=== PATIENT | female | born 1940 | race African-American/Black ===

== ENCOUNTER 2016-08-25 18:49 | Inpatient (IN) | payer OTHER ==
--- NOTE | 2016-08-25 19:22 | HP ---
[facility] Rehab Assess/Revision - Admission History Ad[facility] Date of Admission to Rehab: 08/25/16 - Findings Detox History & Physical reviewed: Yes Concur with findings: Yes Comments/Additional Findings: TRASNFERRED FROM DETOX TO REHAB ADMISSION PER PROTOCOL
[2016-08-25] MEDS ORDERED: NICOTINE POLACRILEX 2 MG GUM BUC PRN (19:24)
[2016-08-25] MEDS ORDERED: MENTHOL/PHENOL 1 EACH UD MM PRN (19:24)
[2016-08-25] MEDS ORDERED: MAGNESIUM CITRATE 300 ML BOTTLE PO PRN (19:24)
[2016-08-25] MEDS ORDERED: NICOTINE 14 MG/24 HOURS TOPICAL PATCH TD PRN (19:24)
[2016-08-25] MEDS ORDERED: LOPERAMIDE HCL 2 MG CAPSULE PO PRN (19:24)
[2016-08-25] MEDS: THIAMINE HCL 100 MG TABLET (FP) PO SCH (21:41)
[2016-08-25] MEDS: RANITIDINE HCL 150 MG TABLET (FP) PO SCH (21:41)
[2016-08-26] MEDS: MIRTAZAPINE 15 MG TABLET (FP) PO SCH ×2 (00:36→21:34)
[2016-08-26] MEDS ORDERED: METHADONE PO SCH ×4 (06:00→11:12)
[2016-08-26] MEDS: PRENATAL VITAMINS W/ FOLIC ACID TABLET (FP) PO SCH (09:22)
[2016-08-26] MEDS: RANITIDINE HCL 150 MG TABLET (FP) PO SCH ×2 (09:22→21:34)
[2016-08-26] MEDS ORDERED: METHADONE HCL 40 MG DISPERSABLE TABLET PO SCH (09:45)
[2016-08-26] MEDS ORDERED: METHADONE PO ONE (11:00)
[2016-08-26] MEDS ORDERED: METHADONE HCL 40 MG DISPERSABLE TABLET ONE (11:35)
[2016-08-26] MEDS ORDERED: METHADONE HCL 5 MG TABLET ONE (11:36)
[2016-08-26] MEDS ORDERED: METHADONE HCL 10 MG TABLET (FOR DETOX USE ONLY) ONE (11:36)
[2016-08-26] MEDS: hydrOXYzine PAMOATE 50 MG CAPSULE (FP) PO PRN ×2 (14:44→21:37)
[2016-08-26] MEDS: IBUPROFEN 400 MG TABLET (FP) PO PRN ×2 (14:45→21:34)
[2016-08-26] MEDS: THIAMINE HCL 100 MG TABLET (FP) PO SCH (21:34)
[2016-08-26] MEDS: MAG HYDROX/AL HYDROX/SIMETH 30 ML UNIT-DOSE CUP PO PRN (21:38)
[2016-08-27] MEDS ORDERED: METHADONE HCL 5 MG TABLET ONE (03:31)
[2016-08-27] MEDS ORDERED: METHADONE HCL 10 MG TABLET ONE (03:31)
[2016-08-27] MEDS ORDERED: METHADONE HCL 40 MG DISPERSABLE TABLET ONE (03:31)
[2016-08-27] MEDS: METHADONE 40 MG, METHADONE 30 MG, METHADONE 5 MG PO SCH (06:38)
[2016-08-27] MEDS: RANITIDINE HCL 150 MG TABLET (FP) PO SCH ×2 (09:16→21:32)
[2016-08-27] MEDS: PRENATAL VITAMINS W/ FOLIC ACID TABLET (FP) PO SCH (09:16)
[2016-08-27] MEDS: ACETAMINOPHEN 325 MG TABLET (FP) PO PRN (19:42)
[2016-08-27] MEDS: MAG HYDROX/AL HYDROX/SIMETH 30 ML UNIT-DOSE CUP PO PRN (19:43)
[2016-08-27] MEDS: MAGNESIUM HYDROX 2400MG/30ML ORAL SUSPENSION 30 ML CUP PO PRN (19:43)
[2016-08-27] MEDS: MIRTAZAPINE 15 MG TABLET (FP) PO SCH (21:32)
[2016-08-27] MEDS: THIAMINE HCL 100 MG TABLET (FP) PO SCH (21:32)
[2016-08-28] MEDS ORDERED: METHADONE HCL 5 MG TABLET ONE (03:09)
[2016-08-28] MEDS ORDERED: METHADONE HCL 40 MG DISPERSABLE TABLET ONE (03:10)
[2016-08-28] MEDS ORDERED: METHADONE HCL 10 MG TABLET ONE (03:10)
[2016-08-28] MEDS: METHADONE 40 MG, METHADONE 30 MG, METHADONE 5 MG PO SCH (06:19)
[2016-08-28] MEDS: PRENATAL VITAMINS W/ FOLIC ACID TABLET (FP) PO SCH (10:25)
[2016-08-28] MEDS: RANITIDINE HCL 150 MG TABLET (FP) PO SCH ×2 (10:26→22:05)
[2016-08-28] MEDS: IBUPROFEN 400 MG TABLET (FP) PO PRN (10:28)
--- NOTE | 2016-08-28 12:17 | HP ---
Psychiatrist Admission - Data Date of interview: 08/28/16 Admission source: [facility] Identifying data: This is the first admission to [address] [place] [address] for this 76 years old AA single female mother of 2(both her kids from sickness).Patient resides alone supported by [facility]. Medical History: Significant for BA,GERD,HTN. Psychiatric History: Patient reports anxiety,depression and mood instability,no psychiatric follow up .She reports obtaining Remeron 15 mg po hs from her PCP.Denies any psychiatric admissions,suicidal attempts. Physical/Sexual Abuse/Trauma History: denies Vital Signs: Vital Signs - 24 hr 08/28/16 08/28/16 08/28/16 00:30 06:36 10:31 Temperature 97.8 F Pulse Rate 80 81 Respiratory 16 18 Rate Blood Pressure 155/80 150/70 Allergies/Adverse Reactions: Allergies Allergy/AdvReac Type Severity Reaction Status Date / Time No Known Allergies Allergy Verified 08/21/16 17:02 Date of last physical exam: 08/21/16 Concur with the findings of this exam: Yes - Substance Abuse/Tx History Hx Alcohol Use: Yes (socially on and off) Hx Substance Use: Yes (reports crack /cocaine and heroin (IV)since 25 yo(MMTP 75 mg)) Substance Use Type: Alcohol, Cocaine, Opiates Hx Substance Use Treatment: Yes (longest abstinence a few months-1 year.completed a few programs in the past) - Admission Criteria Previous failed treatment: Yes Poor recovery environment: Yes Comorbidities: Yes Lacks judgement: Yes Mental Status Exam - Mental Status Exam Alert and Oriented to: Time, Place, Person Cognitive Function: Grossly Intact Patient Appearance: Unkempt Mood: Sad, Anxious Affect: Labile Patient Behavior: Cooperative Speech Pattern: Clear Voice Loudness: Normal Thought Process: Goal Oriented Thought Disorder: Not Present Hallucinations: Denies Suicidal Ideation: Denies Homicidal Ideation: Denies Insight/Judgement: Fair Sleep: Difficulty falling asleep Appetite: Fair Muscle strength/Tone: Normal Gait/Station: Normal Psychiatric Findings - Problem List ([place] 1, 2,3) (1) Cocaine dependence, uncomplicated Current Visit: Yes Status: Chronic (2) Nicotine dependence Current Visit: Yes Status: Chronic (3) Opioid dependence on agonist therapy Current Visit: Yes Status: Chronic (4) Sedative, hypnotic or anxiolytic dependence with withdrawal, uncomplicated Current Visit: Yes Status: Chronic (5) Substance induced mood disorder Current Visit: Yes Status: Chronic (6) Asthma Current Visit: Yes Status: Chronic Qualifiers: (7) GERD (gastroesophageal reflux disease) Current Visit: Yes Status: Chronic Qualifiers: (8) Hypertension Current Visit: Yes Status: Chronic Qualifiers: - Initial Treatment Plan Initial Treatment Plan: Continue Remeron 15 mg po hs. Will monitor progress.
[2016-08-28] MEDS ORDERED: MAGNESIUM CITRATE 300 ML BOTTLE PO PRN (12:41)
[2016-08-28] MEDS: ACETAMINOPHEN 325 MG TABLET (FP) PO PRN (13:41)
[2016-08-28] MEDS: DOCUSATE SODIUM 100 MG CAPSULE (FP) PO SCH ×2 (13:41→22:05)
[2016-08-28] MEDS: hydrOXYzine PAMOATE 50 MG CAPSULE (FP) PO PRN (15:47)
[2016-08-28] MEDS: THIAMINE HCL 100 MG TABLET (FP) PO SCH (22:05)
[2016-08-28] MEDS: MIRTAZAPINE 15 MG TABLET (FP) PO SCH (22:05)
[2016-08-28] MEDS: IBUPROFEN 600 MG TABLET (FP) PO PRN (22:07)
[2016-08-29] MEDS ORDERED: METHADONE HCL 40 MG DISPERSABLE TABLET ONE (06:01)
[2016-08-29] MEDS ORDERED: METHADONE HCL 5 MG TABLET ONE (06:01)
[2016-08-29] MEDS ORDERED: METHADONE HCL 10 MG TABLET ONE (06:01)
[2016-08-29] MEDS: METHADONE 40 MG, METHADONE 30 MG, METHADONE 5 MG PO SCH (06:50)
[2016-08-29] MEDS: PRENATAL VITAMINS W/ FOLIC ACID TABLET (FP) PO SCH (10:30)
[2016-08-29] MEDS: RANITIDINE HCL 150 MG TABLET (FP) PO SCH ×2 (10:30→22:00)
[2016-08-29] MEDS: DOCUSATE SODIUM 100 MG CAPSULE (FP) PO SCH ×2 (10:30→22:00)
[2016-08-29] MEDS: MAG HYDROX/AL HYDROX/SIMETH 30 ML UNIT-DOSE CUP PO PRN (14:41)
[2016-08-29] MEDS: hydrOXYzine PAMOATE 50 MG CAPSULE (FP) PO PRN (14:41)
[2016-08-29] MEDS: IBUPROFEN 600 MG TABLET (FP) PO PRN (18:07)
[2016-08-29] MEDS: THIAMINE HCL 100 MG TABLET (FP) PO SCH (22:00)
[2016-08-29] MEDS: MIRTAZAPINE 15 MG TABLET (FP) PO SCH (22:00)
[2016-08-30] MEDS ORDERED: METHADONE HCL 40 MG DISPERSABLE TABLET ONE (03:20)
[2016-08-30] MEDS ORDERED: METHADONE HCL 5 MG TABLET ONE (03:20)
[2016-08-30] MEDS ORDERED: METHADONE HCL 10 MG TABLET ONE (03:20)
[2016-08-30] MEDS: METHADONE 40 MG, METHADONE 30 MG, METHADONE 5 MG PO SCH (06:35)
[2016-08-30] MEDS: PRENATAL VITAMINS W/ FOLIC ACID TABLET (FP) PO SCH (11:01)
[2016-08-30] MEDS: DOCUSATE SODIUM 100 MG CAPSULE (FP) PO SCH ×2 (11:01→21:50)
[2016-08-30] MEDS: RANITIDINE HCL 150 MG TABLET (FP) PO SCH ×2 (11:01→21:50)
[2016-08-30] MEDS: hydrOXYzine PAMOATE 50 MG CAPSULE (FP) PO PRN (11:04)
[2016-08-30] MEDS: ALBUTEROL SO4 6.7 GM HFA INHALER IH PRN (15:03)
[2016-08-30] MEDS: THIAMINE HCL 100 MG TABLET (FP) PO SCH (21:50)
[2016-08-30] MEDS: MIRTAZAPINE 15 MG TABLET (FP) PO SCH (21:51)
[2016-08-31] MEDS ORDERED: METHADONE HCL 5 MG TABLET ONE (03:25)
[2016-08-31] MEDS ORDERED: METHADONE HCL 10 MG TABLET ONE (03:26)
[2016-08-31] MEDS ORDERED: METHADONE HCL 40 MG DISPERSABLE TABLET ONE (03:26)
[2016-08-31] MEDS: METHADONE 40 MG, METHADONE 30 MG, METHADONE 5 MG PO SCH (06:22)
[2016-08-31] MEDS: RANITIDINE HCL 150 MG TABLET (FP) PO SCH ×2 (10:40→21:46)
[2016-08-31] MEDS: PRENATAL VITAMINS W/ FOLIC ACID TABLET (FP) PO SCH (10:40)
[2016-08-31] MEDS: DOCUSATE SODIUM 100 MG CAPSULE (FP) PO SCH ×2 (10:41→21:46)
[2016-08-31] MEDS: hydrOXYzine PAMOATE 50 MG CAPSULE (FP) PO PRN ×2 (10:43→21:47)
[2016-08-31] MEDS: THIAMINE HCL 100 MG TABLET (FP) PO SCH (21:46)
[2016-08-31] MEDS: MIRTAZAPINE 15 MG TABLET (FP) PO SCH (21:46)
[2016-09-01] MEDS ORDERED: METHADONE HCL 5 MG TABLET ONE (03:25)
[2016-09-01] MEDS ORDERED: METHADONE HCL 10 MG TABLET ONE (03:26)
[2016-09-01] MEDS ORDERED: METHADONE HCL 40 MG DISPERSABLE TABLET ONE (03:26)
[2016-09-01] MEDS: METHADONE 40 MG, METHADONE 30 MG, METHADONE 5 MG PO SCH (06:23)
[2016-09-01] MEDS: PRENATAL VITAMINS W/ FOLIC ACID TABLET (FP) PO SCH (10:18)
[2016-09-01] MEDS: RANITIDINE HCL 150 MG TABLET (FP) PO SCH ×2 (10:18→21:42)
[2016-09-01] MEDS: DOCUSATE SODIUM 100 MG CAPSULE (FP) PO SCH ×2 (10:18→21:42)
[2016-09-01] MEDS: hydrOXYzine PAMOATE 50 MG CAPSULE (FP) PO PRN ×2 (10:19→18:01)
[2016-09-01] MEDS: HYDROCHLOROTHIAZIDE 25 MG TABLET (FP) PO SCH (14:36)
[2016-09-01] MEDS: MIRTAZAPINE 15 MG TABLET (FP) PO SCH (21:42)
[2016-09-01] MEDS: THIAMINE HCL 100 MG TABLET (FP) PO SCH (21:43)
[2016-09-01] MEDS: IBUPROFEN 600 MG TABLET (FP) PO PRN (21:44)
[2016-09-02] MEDS ORDERED: METHADONE HCL 5 MG TABLET ONE (06:06)
[2016-09-02] MEDS ORDERED: METHADONE HCL 10 MG TABLET ONE (06:07)
[2016-09-02] MEDS ORDERED: METHADONE HCL 40 MG DISPERSABLE TABLET ONE (06:07)
[2016-09-02] MEDS: METHADONE 40 MG, METHADONE 30 MG, METHADONE 5 MG PO SCH (06:42)
[2016-09-02] MEDS: PRENATAL VITAMINS W/ FOLIC ACID TABLET (FP) PO SCH (09:06)
[2016-09-02] MEDS: RANITIDINE HCL 150 MG TABLET (FP) PO SCH ×2 (09:06→21:16)
[2016-09-02] MEDS: HYDROCHLOROTHIAZIDE 25 MG TABLET (FP) PO SCH (09:06)
[2016-09-02] MEDS: DOCUSATE SODIUM 100 MG CAPSULE (FP) PO SCH ×2 (09:06→21:16)
[2016-09-02] MEDS: hydrOXYzine PAMOATE 50 MG CAPSULE (FP) PO PRN ×3 (09:06→18:35)
[2016-09-02] MEDS: MIRTAZAPINE 15 MG TABLET (FP) PO SCH (21:16)
[2016-09-02] MEDS: THIAMINE HCL 100 MG TABLET (FP) PO SCH (21:16)
[2016-09-03] MEDS ORDERED: METHADONE HCL 40 MG DISPERSABLE TABLET ONE (05:54)
[2016-09-03] MEDS ORDERED: METHADONE HCL 5 MG TABLET ONE (05:54)
[2016-09-03] MEDS ORDERED: METHADONE HCL 10 MG TABLET ONE (05:54)
[2016-09-03] MEDS: METHADONE 40 MG, METHADONE 30 MG, METHADONE 5 MG PO SCH (05:56)
[2016-09-03] MEDS: hydrOXYzine PAMOATE 50 MG CAPSULE (FP) PO PRN ×3 (06:00→17:11)
[2016-09-03] MEDS: HYDROCHLOROTHIAZIDE 25 MG TABLET (FP) PO SCH (09:19)
[2016-09-03] MEDS: RANITIDINE HCL 150 MG TABLET (FP) PO SCH ×2 (09:19→21:21)
[2016-09-03] MEDS: DOCUSATE SODIUM 100 MG CAPSULE (FP) PO SCH ×2 (09:19→21:21)
[2016-09-03] MEDS: PRENATAL VITAMINS W/ FOLIC ACID TABLET (FP) PO SCH (09:19)
[2016-09-03] MEDS: IBUPROFEN 600 MG TABLET (FP) PO PRN (17:11)
[2016-09-03] MEDS: THIAMINE HCL 100 MG TABLET (FP) PO SCH (21:21)
[2016-09-03] MEDS: MIRTAZAPINE 15 MG TABLET (FP) PO SCH (21:21)
[2016-09-04] MEDS ORDERED: METHADONE HCL 5 MG TABLET ONE (03:10)
[2016-09-04] MEDS ORDERED: METHADONE HCL 40 MG DISPERSABLE TABLET ONE (03:10)
[2016-09-04] MEDS ORDERED: METHADONE HCL 10 MG TABLET ONE (03:10)
[2016-09-04] MEDS: hydrOXYzine PAMOATE 50 MG CAPSULE (FP) PO PRN ×3 (03:19→17:14)
[2016-09-04] MEDS: METHADONE 40 MG, METHADONE 30 MG, METHADONE 5 MG PO SCH (06:05)
[2016-09-04] MEDS: IBUPROFEN 600 MG TABLET (FP) PO PRN (09:02)
[2016-09-04] MEDS: HYDROCHLOROTHIAZIDE 25 MG TABLET (FP) PO SCH (09:04)
[2016-09-04] MEDS: PRENATAL VITAMINS W/ FOLIC ACID TABLET (FP) PO SCH (09:05)
[2016-09-04] MEDS: DOCUSATE SODIUM 100 MG CAPSULE (FP) PO SCH ×2 (09:05→21:42)
[2016-09-04] MEDS: MAG HYDROX/AL HYDROX/SIMETH 30 ML UNIT-DOSE CUP PO PRN (09:06)
[2016-09-04] MEDS: RANITIDINE HCL 150 MG TABLET (FP) PO SCH ×2 (09:52→21:42)
--- NOTE | 2016-09-04 10:49 | PN ---
[facility] Progress Note Note: C/O stuffy nose NS nose spray
[2016-09-04] MEDS: SODIUM CHLORIDE NASAL SPRAY 44 ML BOTTLE NS SCH (11:44)
[2016-09-04] MEDS: THIAMINE HCL 100 MG TABLET (FP) PO SCH (21:42)
[2016-09-04] MEDS: MIRTAZAPINE 15 MG TABLET (FP) PO SCH (21:42)
[2016-09-05] MEDS: SODIUM CHLORIDE NASAL SPRAY 44 ML BOTTLE NS SCH ×3 (00:13→21:38)
[2016-09-05] MEDS ORDERED: METHADONE HCL 10 MG TABLET ONE (03:14)
[2016-09-05] MEDS ORDERED: METHADONE HCL 40 MG DISPERSABLE TABLET ONE (03:14)
[2016-09-05] MEDS ORDERED: METHADONE HCL 5 MG TABLET ONE (03:14)
[2016-09-05] MEDS: METHADONE 40 MG, METHADONE 30 MG, METHADONE 5 MG PO SCH (06:08)
[2016-09-05] MEDS: hydrOXYzine PAMOATE 50 MG CAPSULE (FP) PO PRN ×3 (07:10→18:14)
[2016-09-05] MEDS: IBUPROFEN 600 MG TABLET (FP) PO PRN (08:29)
[2016-09-05] MEDS: HYDROCHLOROTHIAZIDE 25 MG TABLET (FP) PO SCH (10:55)
[2016-09-05] MEDS: PRENATAL VITAMINS W/ FOLIC ACID TABLET (FP) PO SCH (10:55)
[2016-09-05] MEDS: RANITIDINE HCL 150 MG TABLET (FP) PO SCH ×2 (10:55→21:38)
[2016-09-05] MEDS: DOCUSATE SODIUM 100 MG CAPSULE (FP) PO SCH ×2 (10:55→21:38)
--- NOTE | 2016-09-05 11:08 | PN ---
Psychiatric Progress Note Vital Signs: Vital Signs Period Temp Pulse Resp BP Sys/Sue Pulse Ox Last 24 Hr 98.1 F-98.1 F 76-90 16-18 153-166/76-84 Date of Session: 09/05/16 Chief Complaint:: "anxiety" HPI: Patient is addressing cocaine, nicotine, sedative hypnotic dependence comorbid substane induced mood disorder. ROS: BA,GERD,HTN medically managed. Current Medications: Active Medications Generic Name Dose Route Start Last Admin Trade Name Freq PRN Reason Stop Dose Admin Acetaminophen 650 mg 08/25/16 19:24 08/28/16 13:41 Tylenol - PO 650 mg Q4H PRN Administration FEVER OR PAIN Al Hydroxide/Mg Hydroxide 30 ml 08/25/16 19:24 09/04/16 09:06 Mylanta Oral Suspension - PO 30 ml Q6H PRN Administration DYSPEPSIA Albuterol Sulfate 2 puff 08/30/16 14:41 08/30/16 15:03 Ventolin Hfa Inhaler - IH 2 applic Q4H PRN Administration SHORT OF BREATH/WHEEZING Diltiazem HCl 180 mg 08/26/16 10:00 09/05/16 10:55 Cardizem Cd - PO 180 mg DAILY CHANDRA Administration Diphenhydramine HCl 50 mg 08/25/16 19:24 Benadryl - PO HSMR1 PRN FOR ITCHING Docusate Sodium 100 mg 08/28/16 13:00 09/05/16 10:55 Colace - PO 100 mg BID CHANDRA Administration Eucalyptus/Menthol/Phenol/Sorbitol 1 each 08/25/16 19:24 Cepastat Lozenge - MM Q4H PRN SORE THROAT Guaifenesin 10 ml 08/25/16 19:24 Robitussin Dm - PO Q6H PRN COUGH Hydrochlorothiazide 25 mg 09/01/16 14:30 09/05/16 10:55 Hctz - PO 25 mg DAILY CHANDRA Administration Hydroxyzine Pamoate 50 mg 08/25/16 19:24 09/05/16 07:10 Vistaril - PO 50 mg Q4H PRN Administration AGITATION Ibuprofen 600 mg 08/28/16 12:42 09/05/16 08:29 Motrin - PO 600 mg Q6H PRN Administration PAIN Loperamide HCl 4 mg 08/25/16 19:24 Imodium - PO Q6H PRN DIARRHEA Magnesium Hydroxide 30 ml 08/25/16 19:24 08/27/16 19:43 Milk Of Magnesia - PO 30 ml DAILY PRN Administration CONSTIPATION Methadone HCl 40 mg/ Methadone 75 mg 09/03/16 06:00 09/05/16 06:08 HCl 30 mg/ Methadone HCl 5 mg PO 75 mg DAILY@0600 CHANDRA Administration Mirtazapine 15 mg 08/25/16 23:45 09/04/16 21:42 Remeron - PO 15 mg HS CHANDRA Administration Nicotine 14 mg 08/25/16 19:24 Nicoderm Patch - TD DAILY PRN WITHDRAWAL(CONT SUBST) Nicotine Polacrilex 2 mg 08/25/16 19:24 Nicorette Gum - BUC Q2H PRN NICOTINE REPLACEMENT RX Multivit/Folic Acid/Iron 1 tab 08/26/16 10:00 09/05/16 10:55 Vitamins (Sjr) - PO 1 tab DAILY CHANDRA Administration Pseudoephedrine/Triprolidine 1 combo 08/25/16 19:24 Actifed - PO TID PRN NASAL CONGESTION Ranitidine HCl 150 mg 08/25/16 22:00 09/05/16 10:55 Zantac - PO 150 mg BID CHANDRA Administration Sodium Chloride 2 spray 09/04/16 11:00 09/05/16 10:56 [place] Nasal [place] - NS 2 spray BID CHANDRA Administration Thiamine HCl 100 mg 08/25/16 22:00 09/04/16 21:42 Vitamin B1 - PO 100 mg HS CHANDRA Administration Current Side Effect: No Lab tests ordered: No Lab tests reviewed: Yes Provider note:: Reviewed the chart, met with the patient, patient reports she has a difficulty to adjust the unit due to her anxiety, states was taking non prescribed klonopin, feels that Vistaril not effective, reviewed her current medications, discussed indications, properties medications(Remeron and Buspar) with the patient, recommended to start Buspar 5 mg po tid and will adjust the dosage if needed, psychoeducation provided, MSE completed. Total face to face time:: 30 Mental Status Exam - Mental Status Exam Alert and Oriented to: Time, Place, Person Cognitive Function: Good Patient Appearance: Well Groomed Mood: Sad, Anxious Affect: Appropriate, Mood Congruent Patient Behavior: Appropriate, Cooperative Speech Pattern: Clear, Appropriate Voice Loudness: Normal Thought Process: Intact, Goal Oriented Thought Disorder: Not Present Hallucinations: Denies Suicidal Ideation: Denies Homicidal Ideation: Denies Insight/Judgement: Fair Sleep: Difficulty falling asleep Appetite: Fair Gait/Station: Other (ambultes with walker) Psychiatric Treatment Plan - Problem List (1) Asthma Current Visit: Yes Qualifiers: (2) Cocaine dependence, uncomplicated Current Visit: Yes (3) GERD (gastroesophageal reflux disease) Current Visit: Yes Qualifiers: (4) Hypertension Current Visit: Yes Qualifiers: (5) Nicotine dependence Current Visit: Yes (6) Opioid dependence on agonist therapy Current Visit: Yes (7) Sedative, hypnotic or anxiolytic dependence with withdrawal, uncomplicated Current Visit: Yes (8) Substance induced mood disorder Current Visit: Yes
[2016-09-05] MEDS: busPIRone HCL 5 MG TABLET PO SCH ×2 (13:08→21:39)
[2016-09-05] MEDS: MIRTAZAPINE 15 MG TABLET (FP) PO SCH (21:38)
[2016-09-05] MEDS: THIAMINE HCL 100 MG TABLET (FP) PO SCH (21:39)
[2016-09-06] MEDS ORDERED: METHADONE HCL 10 MG TABLET ONE (03:30)
[2016-09-06] MEDS ORDERED: METHADONE HCL 40 MG DISPERSABLE TABLET ONE (03:31)
[2016-09-06] MEDS ORDERED: METHADONE HCL 5 MG TABLET ONE (03:31)
[2016-09-06] MEDS: METHADONE 40 MG, METHADONE 30 MG, METHADONE 5 MG PO SCH (06:20)
[2016-09-06] MEDS: busPIRone HCL 5 MG TABLET PO SCH ×3 (06:20→21:07)
[2016-09-06] MEDS: DOCUSATE SODIUM 100 MG CAPSULE (FP) PO SCH ×2 (10:25→21:07)
[2016-09-06] MEDS: HYDROCHLOROTHIAZIDE 25 MG TABLET (FP) PO SCH (10:25)
[2016-09-06] MEDS: RANITIDINE HCL 150 MG TABLET (FP) PO SCH ×2 (10:26→21:07)
[2016-09-06] MEDS: hydrOXYzine PAMOATE 50 MG CAPSULE (FP) PO PRN ×2 (10:26→16:37)
[2016-09-06] MEDS: PRENATAL VITAMINS W/ FOLIC ACID TABLET (FP) PO SCH (10:26)
[2016-09-06] MEDS: SODIUM CHLORIDE NASAL SPRAY 44 ML BOTTLE NS SCH ×2 (10:26→21:09)
[2016-09-06] MEDS: THIAMINE HCL 100 MG TABLET (FP) PO SCH (21:07)
[2016-09-06] MEDS: MIRTAZAPINE 15 MG TABLET (FP) PO SCH (21:09)
[2016-09-07] MEDS ORDERED: METHADONE HCL 5 MG TABLET ONE (03:16)
[2016-09-07] MEDS ORDERED: METHADONE HCL 40 MG DISPERSABLE TABLET ONE (03:17)
[2016-09-07] MEDS ORDERED: METHADONE HCL 10 MG TABLET ONE (03:17)
[2016-09-07] MEDS: busPIRone HCL 5 MG TABLET PO SCH ×3 (06:23→21:17)
[2016-09-07] MEDS: METHADONE 40 MG, METHADONE 30 MG, METHADONE 5 MG PO SCH (06:23)
[2016-09-07] MEDS: DOCUSATE SODIUM 100 MG CAPSULE (FP) PO SCH ×2 (10:06→21:18)
[2016-09-07] MEDS: PRENATAL VITAMINS W/ FOLIC ACID TABLET (FP) PO SCH (10:06)
[2016-09-07] MEDS: RANITIDINE HCL 150 MG TABLET (FP) PO SCH ×2 (10:06→21:18)
[2016-09-07] MEDS: SODIUM CHLORIDE NASAL SPRAY 44 ML BOTTLE NS SCH ×2 (10:06→21:18)
[2016-09-07] MEDS: HYDROCHLOROTHIAZIDE 25 MG TABLET (FP) PO SCH (10:06)
[2016-09-07] MEDS: hydrOXYzine PAMOATE 50 MG CAPSULE (FP) PO PRN ×2 (10:07→21:18)
[2016-09-07] MEDS: THIAMINE HCL 100 MG TABLET (FP) PO SCH (21:17)
[2016-09-07] MEDS: MIRTAZAPINE 15 MG TABLET (FP) PO SCH (21:18)
[2016-09-08] MEDS ORDERED: METHADONE HCL 5 MG TABLET ONE (05:56)
[2016-09-08] MEDS ORDERED: METHADONE HCL 40 MG DISPERSABLE TABLET ONE (05:56)
[2016-09-08] MEDS ORDERED: METHADONE HCL 10 MG TABLET ONE (05:56)
[2016-09-08] MEDS: METHADONE 40 MG, METHADONE 30 MG, METHADONE 5 MG PO SCH (06:28)
[2016-09-08] MEDS: busPIRone HCL 5 MG TABLET PO SCH ×3 (06:28→21:20)
[2016-09-08] MEDS: SODIUM CHLORIDE NASAL SPRAY 44 ML BOTTLE NS SCH ×2 (10:47→21:21)
[2016-09-08] MEDS: HYDROCHLOROTHIAZIDE 25 MG TABLET (FP) PO SCH (10:48)
[2016-09-08] MEDS: RANITIDINE HCL 150 MG TABLET (FP) PO SCH ×2 (10:48→21:20)
[2016-09-08] MEDS: DOCUSATE SODIUM 100 MG CAPSULE (FP) PO SCH ×2 (10:48→21:20)
[2016-09-08] MEDS: PRENATAL VITAMINS W/ FOLIC ACID TABLET (FP) PO SCH (10:48)
[2016-09-08] MEDS: IBUPROFEN 600 MG TABLET (FP) PO PRN ×2 (10:50→18:22)
[2016-09-08] MEDS: P-EPHED 60MG/TRIPROLIDI 2.5MG TABLET PO PRN (13:46)
[2016-09-08] MEDS: hydrOXYzine PAMOATE 50 MG CAPSULE (FP) PO PRN (18:21)
[2016-09-08] MEDS: THIAMINE HCL 100 MG TABLET (FP) PO SCH (21:20)
[2016-09-08] MEDS: MIRTAZAPINE 15 MG TABLET (FP) PO SCH (21:20)
[2016-09-09] MEDS ORDERED: METHADONE HCL 40 MG DISPERSABLE TABLET ONE (03:14)
[2016-09-09] MEDS ORDERED: METHADONE HCL 10 MG TABLET ONE (03:14)
[2016-09-09] MEDS ORDERED: METHADONE HCL 5 MG TABLET ONE (03:14)
[2016-09-09] MEDS: METHADONE 40 MG, METHADONE 30 MG, METHADONE 5 MG PO SCH (06:12)
[2016-09-09] MEDS: busPIRone HCL 5 MG TABLET PO SCH ×3 (06:13→21:39)
[2016-09-09] MEDS: SODIUM CHLORIDE NASAL SPRAY 44 ML BOTTLE NS SCH ×2 (10:00→21:39)
[2016-09-09] MEDS: RANITIDINE HCL 150 MG TABLET (FP) PO SCH ×2 (10:01→21:39)
[2016-09-09] MEDS: HYDROCHLOROTHIAZIDE 25 MG TABLET (FP) PO SCH (10:01)
[2016-09-09] MEDS: DOCUSATE SODIUM 100 MG CAPSULE (FP) PO SCH ×2 (10:01→21:39)
[2016-09-09] MEDS: PRENATAL VITAMINS W/ FOLIC ACID TABLET (FP) PO SCH (10:01)
[2016-09-09] MEDS: hydrOXYzine PAMOATE 50 MG CAPSULE (FP) PO PRN (10:02)
[2016-09-09] MEDS: MAGNESIUM HYDROX 2400MG/30ML ORAL SUSPENSION 30 ML CUP PO PRN (18:34)
[2016-09-09] MEDS: MIRTAZAPINE 15 MG TABLET (FP) PO SCH (21:39)
[2016-09-09] MEDS: THIAMINE HCL 100 MG TABLET (FP) PO SCH (21:39)
[2016-09-10] MEDS ORDERED: METHADONE HCL 5 MG TABLET ONE (03:19)
[2016-09-10] MEDS ORDERED: METHADONE HCL 10 MG TABLET ONE (03:19)
[2016-09-10] MEDS ORDERED: METHADONE HCL 40 MG DISPERSABLE TABLET ONE (03:19)
[2016-09-10] MEDS: busPIRone HCL 5 MG TABLET PO SCH ×3 (06:36→21:35)
[2016-09-10] MEDS: METHADONE 40 MG, METHADONE 30 MG, METHADONE 5 MG PO SCH (06:36)
[2016-09-10] MEDS ORDERED: MAGNESIUM CITRATE 300 ML BOTTLE PO PRN (07:00)
[2016-09-10] MEDS: DOCUSATE SODIUM 100 MG CAPSULE (FP) PO SCH ×2 (10:24→21:34)
[2016-09-10] MEDS: HYDROCHLOROTHIAZIDE 25 MG TABLET (FP) PO SCH (10:25)
[2016-09-10] MEDS: SODIUM CHLORIDE NASAL SPRAY 44 ML BOTTLE NS SCH ×2 (10:25→21:34)
[2016-09-10] MEDS: PRENATAL VITAMINS W/ FOLIC ACID TABLET (FP) PO SCH (10:25)
[2016-09-10] MEDS: hydrOXYzine PAMOATE 50 MG CAPSULE (FP) PO PRN (10:26)
[2016-09-10] MEDS: RANITIDINE HCL 150 MG TABLET (FP) PO SCH ×2 (10:26→21:35)
[2016-09-10] MEDS: P-EPHED 60MG/TRIPROLIDI 2.5MG TABLET PO PRN (13:14)
[2016-09-10] MEDS: THIAMINE HCL 100 MG TABLET (FP) PO SCH (21:34)
[2016-09-10] MEDS: MIRTAZAPINE 15 MG TABLET (FP) PO SCH (21:35)
[2016-09-11] MEDS ORDERED: METHADONE HCL 5 MG TABLET ONE (03:36)
[2016-09-11] MEDS ORDERED: METHADONE HCL 40 MG DISPERSABLE TABLET ONE (03:36)
[2016-09-11] MEDS ORDERED: METHADONE HCL 10 MG TABLET ONE (03:36)
[2016-09-11] MEDS: METHADONE 40 MG, METHADONE 30 MG, METHADONE 5 MG PO SCH (06:17)
[2016-09-11] MEDS: busPIRone HCL 5 MG TABLET PO SCH ×3 (06:17→21:46)
[2016-09-11] MEDS: DOCUSATE SODIUM 100 MG CAPSULE (FP) PO SCH ×2 (09:35→21:46)
[2016-09-11] MEDS: SODIUM CHLORIDE NASAL SPRAY 44 ML BOTTLE NS SCH ×2 (09:35→21:46)
[2016-09-11] MEDS: PRENATAL VITAMINS W/ FOLIC ACID TABLET (FP) PO SCH (09:35)
[2016-09-11] MEDS: RANITIDINE HCL 150 MG TABLET (FP) PO SCH ×2 (09:35→21:46)
[2016-09-11] MEDS: HYDROCHLOROTHIAZIDE 25 MG TABLET (FP) PO SCH (09:35)
[2016-09-11] MEDS: hydrOXYzine PAMOATE 50 MG CAPSULE (FP) PO PRN (09:36)
[2016-09-11] MEDS: guaiFENesin/D-METHORPHAN HB 10 ML UNIT-DOSE CUPS PO PRN (19:02)
[2016-09-11] MEDS: THIAMINE HCL 100 MG TABLET (FP) PO SCH (21:46)
[2016-09-11] MEDS: MIRTAZAPINE 15 MG TABLET (FP) PO SCH (21:46)
[2016-09-12] MEDS: ACETAMINOPHEN 325 MG TABLET (FP) PO PRN ×2 (04:40→19:11)
[2016-09-12] MEDS: guaiFENesin/D-METHORPHAN HB 10 ML UNIT-DOSE CUPS PO PRN ×2 (04:40→19:10)
[2016-09-12] MEDS ORDERED: METHADONE HCL 5 MG TABLET ONE (06:00)
[2016-09-12] MEDS ORDERED: METHADONE HCL 10 MG TABLET PO SCH (06:00)
[2016-09-12] MEDS ORDERED: METHADONE HCL 10 MG TABLET ONE (06:01)
[2016-09-12] MEDS ORDERED: METHADONE HCL 40 MG DISPERSABLE TABLET ONE (06:01)
[2016-09-12] MEDS: METHADONE 40 MG, METHADONE 30 MG, METHADONE 5 MG PO SCH (06:32)
[2016-09-12] MEDS: busPIRone HCL 5 MG TABLET PO SCH ×3 (06:33→21:46)
[2016-09-12] MEDS: ALBUTEROL SO4 6.7 GM HFA INHALER IH PRN ×2 (07:25→12:42)
[2016-09-12] MEDS: SODIUM CHLORIDE NASAL SPRAY 44 ML BOTTLE NS SCH ×2 (11:03→21:48)
[2016-09-12] MEDS: DOCUSATE SODIUM 100 MG CAPSULE (FP) PO SCH ×2 (11:03→21:46)
[2016-09-12] MEDS: RANITIDINE HCL 150 MG TABLET (FP) PO SCH ×2 (11:04→21:46)
[2016-09-12] MEDS: PRENATAL VITAMINS W/ FOLIC ACID TABLET (FP) PO SCH (11:04)
[2016-09-12] MEDS: HYDROCHLOROTHIAZIDE 25 MG TABLET (FP) PO SCH (11:04)
[2016-09-12] MEDS: hydrOXYzine PAMOATE 50 MG CAPSULE (FP) PO PRN (11:06)
--- NOTE | 2016-09-12 14:28 | PN ---
[facility] Progress Note (SOAP) Subjective: C/O COUGHING,WHEEZING AND LOW GRADE TEMP Objective: 09/12/16 14:27 Vital Signs - 8 hr 09/12/16 09/12/16 07:19 09:28 Temperature 99.0 F 98.5 F Pulse Rate 90 92 H Respiratory 18 18 Rate Blood Pressure 166/90 159/79 LUNGS : EXPIRATORY WHEEZING & RHONCHI Assessment: 09/12/16 14:27 ACUTE BRONCHITIS Plan: LEVAQUIN PREDNISONE
[2016-09-12] MEDS: ALBUTEROL SO4 2.5/IPRATROPIUM 0.5 INH SOL 3 ML VIAL.NEB. NEB ONE ×2 (14:58→15:00)
[2016-09-12] MEDS: predniSONE 20 MG TABLET (UD) PO SCH (15:15)
[2016-09-12] MEDS: LEVOFLOXACIN 500 MG TABLET (FP) PO SCH (15:15)
[2016-09-12] MEDS: ALBUTEROL SO4 2.5/IPRATROPIUM 0.5 INH SOL 3 ML VIAL.NEB. NEB SCH ×2 (19:10→21:48)
[2016-09-12] MEDS: MIRTAZAPINE 15 MG TABLET (FP) PO SCH (21:46)
[2016-09-12] MEDS: THIAMINE HCL 100 MG TABLET (FP) PO SCH (21:46)
[2016-09-12] MEDS: MONTELUKAST NA 10 MG TABLET PO SCH (21:47)
[2016-09-13] MEDS: guaiFENesin/D-METHORPHAN HB 10 ML UNIT-DOSE CUPS PO PRN ×2 (01:50→13:30)
[2016-09-13] MEDS: ALBUTEROL SO4 2.5/IPRATROPIUM 0.5 INH SOL 3 ML VIAL.NEB. NEB PRN (01:50)
[2016-09-13] MEDS ORDERED: METHADONE HCL 5 MG TABLET ONE (03:14)
[2016-09-13] MEDS ORDERED: METHADONE HCL 10 MG TABLET ONE (03:14)
[2016-09-13] MEDS ORDERED: METHADONE HCL 40 MG DISPERSABLE TABLET ONE (03:15)
[2016-09-13] MEDS: METHADONE 40 MG, METHADONE 30 MG, METHADONE 5 MG PO SCH (06:34)
[2016-09-13] MEDS: LEVOFLOXACIN 500 MG TABLET (FP) PO SCH (06:35)
[2016-09-13] MEDS: busPIRone HCL 5 MG TABLET PO SCH ×2 (06:35→13:29)
[2016-09-13] MEDS: RANITIDINE HCL 150 MG TABLET (FP) PO SCH ×2 (10:48→21:34)
[2016-09-13] MEDS: HYDROCHLOROTHIAZIDE 25 MG TABLET (FP) PO SCH (10:48)
[2016-09-13] MEDS: PRENATAL VITAMINS W/ FOLIC ACID TABLET (FP) PO SCH (10:48)
[2016-09-13] MEDS: predniSONE 20 MG TABLET (UD) PO SCH (10:48)
[2016-09-13] MEDS: DOCUSATE SODIUM 100 MG CAPSULE (FP) PO SCH ×2 (10:48→21:33)
[2016-09-13] MEDS: ALBUTEROL SO4 2.5/IPRATROPIUM 0.5 INH SOL 3 ML VIAL.NEB. NEB SCH ×4 (10:48→21:35)
[2016-09-13] MEDS: SODIUM CHLORIDE NASAL SPRAY 44 ML BOTTLE NS SCH ×2 (10:49→21:35)
[2016-09-13] MEDS: THIAMINE HCL 100 MG TABLET (FP) PO SCH (21:33)
[2016-09-13] MEDS: busPIRone HCL 10 MG TABLET (FP) PO SCH (21:33)
[2016-09-13] MEDS: MONTELUKAST NA 10 MG TABLET PO SCH (21:34)
[2016-09-13] MEDS: MIRTAZAPINE 15 MG TABLET (FP) PO SCH (21:34)
[2016-09-13] MEDS: MAG HYDROX/AL HYDROX/SIMETH 30 ML UNIT-DOSE CUP PO PRN (22:14)
[2016-09-14] MEDS: guaiFENesin/D-METHORPHAN HB 10 ML UNIT-DOSE CUPS PO PRN ×2 (02:42→11:16)
[2016-09-14] MEDS ORDERED: METHADONE HCL 40 MG DISPERSABLE TABLET ONE (03:22)
[2016-09-14] MEDS ORDERED: METHADONE HCL 5 MG TABLET ONE (03:22)
[2016-09-14] MEDS ORDERED: METHADONE HCL 10 MG TABLET ONE (03:22)
[2016-09-14] MEDS: METHADONE 40 MG, METHADONE 30 MG, METHADONE 5 MG PO SCH (06:20)
[2016-09-14] MEDS: LEVOFLOXACIN 500 MG TABLET (FP) PO SCH (06:21)
[2016-09-14] MEDS: ALBUTEROL SO4 2.5/IPRATROPIUM 0.5 INH SOL 3 ML VIAL.NEB. NEB PRN (06:22)
[2016-09-14] MEDS: ALBUTEROL SO4 2.5/IPRATROPIUM 0.5 INH SOL 3 ML VIAL.NEB. NEB SCH ×3 (09:53→22:21)
[2016-09-14] MEDS: busPIRone HCL 10 MG TABLET (FP) PO SCH ×2 (11:12→22:18)
[2016-09-14] MEDS: predniSONE 20 MG TABLET (UD) PO SCH (11:12)
[2016-09-14] MEDS: DOCUSATE SODIUM 100 MG CAPSULE (FP) PO SCH ×2 (11:12→22:19)
[2016-09-14] MEDS: HYDROCHLOROTHIAZIDE 25 MG TABLET (FP) PO SCH (11:12)
[2016-09-14] MEDS: RANITIDINE HCL 150 MG TABLET (FP) PO SCH ×2 (11:13→22:22)
[2016-09-14] MEDS: PRENATAL VITAMINS W/ FOLIC ACID TABLET (FP) PO SCH (11:13)
[2016-09-14] MEDS: SODIUM CHLORIDE NASAL SPRAY 44 ML BOTTLE NS SCH ×2 (11:13→22:22)
[2016-09-14] MEDS: hydrOXYzine PAMOATE 50 MG CAPSULE (FP) PO PRN (11:16)
[2016-09-14] MEDS: ACETAMINOPHEN 325 MG TABLET (FP) PO PRN (22:18)
[2016-09-14] MEDS: MONTELUKAST NA 10 MG TABLET PO SCH (22:18)
[2016-09-14] MEDS: diphenhydrAMINE HCL 50 MG CAPSULE PO PRN (22:19)
[2016-09-14] MEDS: MIRTAZAPINE 15 MG TABLET (FP) PO SCH (22:22)
[2016-09-14] MEDS: THIAMINE HCL 100 MG TABLET (FP) PO SCH (22:22)
[2016-09-15] MEDS ORDERED: METHADONE HCL 5 MG TABLET ONE (03:08)
[2016-09-15] MEDS ORDERED: METHADONE HCL 40 MG DISPERSABLE TABLET ONE (03:08)
[2016-09-15] MEDS ORDERED: METHADONE HCL 10 MG TABLET ONE (03:08)
[2016-09-15] MEDS: METHADONE 40 MG, METHADONE 30 MG, METHADONE 5 MG PO SCH (06:06)
[2016-09-15] MEDS: LEVOFLOXACIN 500 MG TABLET (FP) PO SCH (06:07)
[2016-09-15] MEDS: RANITIDINE HCL 150 MG TABLET (FP) PO SCH ×2 (10:59→21:31)
[2016-09-15] MEDS: SODIUM CHLORIDE NASAL SPRAY 44 ML BOTTLE NS SCH ×2 (10:59→21:32)
[2016-09-15] MEDS: HYDROCHLOROTHIAZIDE 25 MG TABLET (FP) PO SCH (10:59)
[2016-09-15] MEDS: busPIRone HCL 10 MG TABLET (FP) PO SCH ×2 (10:59→21:31)
[2016-09-15] MEDS: DOCUSATE SODIUM 100 MG CAPSULE (FP) PO SCH ×2 (10:59→21:31)
[2016-09-15] MEDS: PRENATAL VITAMINS W/ FOLIC ACID TABLET (FP) PO SCH (10:59)
[2016-09-15] MEDS: ALBUTEROL SO4 2.5/IPRATROPIUM 0.5 INH SOL 3 ML VIAL.NEB. NEB SCH ×5 (10:59→22:41)
[2016-09-15] MEDS: predniSONE 20 MG TABLET (UD) PO SCH (11:00)
[2016-09-15] MEDS: guaiFENesin/D-METHORPHAN HB 10 ML UNIT-DOSE CUPS PO PRN (11:04)
[2016-09-15] MEDS: IBUPROFEN 600 MG TABLET (FP) PO PRN (11:35)
--- NOTE | 2016-09-15 13:29 | PN ---
[facility] Progress Note Note: CX-RAY REVEALS RT. MIDDLE LOBE INFILTRATE DX. : RML PNEUMONIA P : CONTINUE LEVAQUIN
[2016-09-15] MEDS: MAGNESIUM HYDROX 2400MG/30ML ORAL SUSPENSION 30 ML CUP PO PRN (17:40)
[2016-09-15] MEDS: MIRTAZAPINE 15 MG TABLET (FP) PO SCH (21:31)
[2016-09-15] MEDS: THIAMINE HCL 100 MG TABLET (FP) PO SCH (21:31)
[2016-09-15] MEDS: MONTELUKAST NA 10 MG TABLET PO SCH (21:31)
[2016-09-15] MEDS: diphenhydrAMINE HCL 50 MG CAPSULE PO PRN (21:35)
[2016-09-16] MEDS ORDERED: METHADONE HCL 5 MG TABLET ONE (05:38)
[2016-09-16] MEDS ORDERED: METHADONE HCL 10 MG TABLET ONE (05:39)
[2016-09-16] MEDS ORDERED: METHADONE HCL 40 MG DISPERSABLE TABLET ONE (05:39)
[2016-09-16] MEDS: METHADONE 40 MG, METHADONE 30 MG, METHADONE 5 MG PO SCH (06:31)
[2016-09-16] MEDS: LEVOFLOXACIN 500 MG TABLET (FP) PO SCH (06:31)
[2016-09-16] MEDS: hydrOXYzine PAMOATE 50 MG CAPSULE (FP) PO PRN (06:35)
[2016-09-16] MEDS: ALBUTEROL SO4 2.5/IPRATROPIUM 0.5 INH SOL 3 ML VIAL.NEB. NEB SCH ×4 (09:17→22:13)
[2016-09-16] MEDS: predniSONE 20 MG TABLET (UD) PO SCH (10:56)
[2016-09-16] MEDS: PRENATAL VITAMINS W/ FOLIC ACID TABLET (FP) PO SCH (10:56)
[2016-09-16] MEDS: DOCUSATE SODIUM 100 MG CAPSULE (FP) PO SCH ×2 (10:56→22:14)
[2016-09-16] MEDS: busPIRone HCL 10 MG TABLET (FP) PO SCH ×2 (10:56→22:11)
[2016-09-16] MEDS: RANITIDINE HCL 150 MG TABLET (FP) PO SCH ×2 (10:56→22:11)
[2016-09-16] MEDS: HYDROCHLOROTHIAZIDE 25 MG TABLET (FP) PO SCH (10:56)
[2016-09-16] MEDS: SODIUM CHLORIDE NASAL SPRAY 44 ML BOTTLE NS SCH ×2 (10:56→22:12)
[2016-09-16] MEDS: guaiFENesin/D-METHORPHAN HB 10 ML UNIT-DOSE CUPS PO PRN (22:11)
[2016-09-16] MEDS: diphenhydrAMINE HCL 50 MG CAPSULE PO PRN (22:11)
[2016-09-16] MEDS: THIAMINE HCL 100 MG TABLET (FP) PO SCH (22:12)
[2016-09-16] MEDS: MONTELUKAST NA 10 MG TABLET PO SCH (22:12)
[2016-09-16] MEDS: MIRTAZAPINE 15 MG TABLET (FP) PO SCH (22:12)
[2016-09-17] MEDS ORDERED: METHADONE HCL 40 MG DISPERSABLE TABLET ONE (05:22)
[2016-09-17] MEDS ORDERED: METHADONE HCL 10 MG TABLET ONE (05:22)
[2016-09-17] MEDS ORDERED: METHADONE HCL 5 MG TABLET ONE (05:22)
[2016-09-17] MEDS: LEVOFLOXACIN 500 MG TABLET (FP) PO SCH (06:30)
[2016-09-17] MEDS: METHADONE 40 MG, METHADONE 30 MG, METHADONE 5 MG PO SCH (07:16)
[2016-09-17] MEDS: ALBUTEROL SO4 2.5/IPRATROPIUM 0.5 INH SOL 3 ML VIAL.NEB. NEB SCH ×4 (09:10→21:59)
[2016-09-17] MEDS: PRENATAL VITAMINS W/ FOLIC ACID TABLET (FP) PO SCH (09:15)
[2016-09-17] MEDS: SODIUM CHLORIDE NASAL SPRAY 44 ML BOTTLE NS SCH ×2 (09:15→21:57)
[2016-09-17] MEDS: busPIRone HCL 10 MG TABLET (FP) PO SCH ×2 (09:16→21:57)
[2016-09-17] MEDS: DOCUSATE SODIUM 100 MG CAPSULE (FP) PO SCH ×2 (09:16→21:57)
[2016-09-17] MEDS: HYDROCHLOROTHIAZIDE 25 MG TABLET (FP) PO SCH (09:16)
[2016-09-17] MEDS: RANITIDINE HCL 150 MG TABLET (FP) PO SCH ×2 (09:18→21:57)
[2016-09-17] MEDS ORDERED: predniSONE 10 MG TABLET (UD) PO ONE (10:30)
[2016-09-17] MEDS: guaiFENesin/D-METHORPHAN HB 10 ML UNIT-DOSE CUPS PO PRN ×2 (11:03→21:57)
[2016-09-17] MEDS: hydrOXYzine PAMOATE 50 MG CAPSULE (FP) PO PRN (11:03)
[2016-09-17] MEDS: MONTELUKAST NA 10 MG TABLET PO SCH (21:57)
[2016-09-17] MEDS: THIAMINE HCL 100 MG TABLET (FP) PO SCH (21:57)
[2016-09-17] MEDS: MIRTAZAPINE 15 MG TABLET (FP) PO SCH (21:57)
[2016-09-18] MEDS ORDERED: METHADONE HCL 5 MG TABLET ONE (03:36)
[2016-09-18] MEDS ORDERED: METHADONE HCL 40 MG DISPERSABLE TABLET ONE (03:37)
[2016-09-18] MEDS ORDERED: METHADONE HCL 10 MG TABLET ONE (03:37)
[2016-09-18] MEDS: METHADONE 40 MG, METHADONE 30 MG, METHADONE 5 MG PO SCH (06:10)
[2016-09-18] MEDS: LEVOFLOXACIN 500 MG TABLET (FP) PO SCH (06:12)
[2016-09-18] MEDS: ALBUTEROL SO4 2.5/IPRATROPIUM 0.5 INH SOL 3 ML VIAL.NEB. NEB SCH ×4 (09:50→21:51)
[2016-09-18] MEDS ORDERED: predniSONE 20 MG TABLET (UD) PO ONE (10:00)
[2016-09-18] MEDS: DOCUSATE SODIUM 100 MG CAPSULE (FP) PO SCH ×2 (10:37→21:49)
[2016-09-18] MEDS: busPIRone HCL 10 MG TABLET (FP) PO SCH ×2 (10:37→21:49)
[2016-09-18] MEDS: HYDROCHLOROTHIAZIDE 25 MG TABLET (FP) PO SCH (10:38)
[2016-09-18] MEDS: SODIUM CHLORIDE NASAL SPRAY 44 ML BOTTLE NS SCH ×2 (10:38→21:49)
[2016-09-18] MEDS: PRENATAL VITAMINS W/ FOLIC ACID TABLET (FP) PO SCH (10:39)
[2016-09-18] MEDS: MAGNESIUM HYDROX 2400MG/30ML ORAL SUSPENSION 30 ML CUP PO PRN (10:39)
[2016-09-18] MEDS: RANITIDINE HCL 150 MG TABLET (FP) PO SCH ×2 (10:39→21:49)
[2016-09-18] MEDS ORDERED: MAGNESIUM CITRATE 300 ML BOTTLE PO PRN (14:25)
[2016-09-18] MEDS: hydrOXYzine PAMOATE 50 MG CAPSULE (FP) PO PRN (18:10)
[2016-09-18] MEDS: guaiFENesin/D-METHORPHAN HB 10 ML UNIT-DOSE CUPS PO PRN (21:49)
[2016-09-18] MEDS: THIAMINE HCL 100 MG TABLET (FP) PO SCH (21:49)
[2016-09-18] MEDS: MONTELUKAST NA 10 MG TABLET PO SCH (21:49)
[2016-09-18] MEDS: MIRTAZAPINE 15 MG TABLET (FP) PO SCH (21:49)
[2016-09-19] MEDS ORDERED: METHADONE HCL 5 MG TABLET ONE (03:24)
[2016-09-19] MEDS ORDERED: METHADONE HCL 40 MG DISPERSABLE TABLET ONE (03:24)
[2016-09-19] MEDS ORDERED: METHADONE HCL 10 MG TABLET ONE (03:24)
[2016-09-19] MEDS: LEVOFLOXACIN 500 MG TABLET (FP) PO SCH (06:11)
[2016-09-19] MEDS: METHADONE 40 MG, METHADONE 30 MG, METHADONE 5 MG PO SCH (06:11)
[2016-09-19] MEDS ORDERED: predniSONE 10 MG TABLET (UD) PO ONE (10:00)
[2016-09-19] MEDS: ALBUTEROL SO4 2.5/IPRATROPIUM 0.5 INH SOL 3 ML VIAL.NEB. NEB SCH ×4 (10:48→21:55)
[2016-09-19] MEDS: HYDROCHLOROTHIAZIDE 25 MG TABLET (FP) PO SCH (10:49)
[2016-09-19] MEDS: busPIRone HCL 10 MG TABLET (FP) PO SCH ×2 (10:49→21:53)
[2016-09-19] MEDS: RANITIDINE HCL 150 MG TABLET (FP) PO SCH ×2 (10:49→21:53)
[2016-09-19] MEDS: PRENATAL VITAMINS W/ FOLIC ACID TABLET (FP) PO SCH (10:49)
[2016-09-19] MEDS: SODIUM CHLORIDE NASAL SPRAY 44 ML BOTTLE NS SCH ×2 (10:49→21:53)
[2016-09-19] MEDS: DOCUSATE SODIUM 100 MG CAPSULE (FP) PO SCH ×2 (10:49→21:53)
[2016-09-19] MEDS: MAGNESIUM HYDROX 2400MG/30ML ORAL SUSPENSION 30 ML CUP PO PRN (13:13)
[2016-09-19] MEDS: guaiFENesin/D-METHORPHAN HB 10 ML UNIT-DOSE CUPS PO PRN (13:32)
[2016-09-19] MEDS: hydrOXYzine PAMOATE 50 MG CAPSULE (FP) PO PRN (16:18)
[2016-09-19] MEDS: MONTELUKAST NA 10 MG TABLET PO SCH (21:53)
[2016-09-19] MEDS: MIRTAZAPINE 15 MG TABLET (FP) PO SCH (21:54)
[2016-09-19] MEDS: THIAMINE HCL 100 MG TABLET (FP) PO SCH (21:54)
[2016-09-19] MEDS: diphenhydrAMINE HCL 50 MG CAPSULE PO PRN (21:55)
[2016-09-20] MEDS ORDERED: METHADONE HCL 40 MG DISPERSABLE TABLET PO SCH (06:00)
[2016-09-20] MEDS ORDERED: METHADONE HCL 5 MG TABLET ONE (06:03)
[2016-09-20] MEDS ORDERED: METHADONE HCL 10 MG TABLET ONE (06:03)
[2016-09-20] MEDS ORDERED: METHADONE HCL 40 MG DISPERSABLE TABLET ONE (06:04)
[2016-09-20] MEDS: METHADONE 40 MG, METHADONE 30 MG, METHADONE 5 MG PO SCH (06:22)
[2016-09-20] MEDS: ALBUTEROL SO4 2.5/IPRATROPIUM 0.5 INH SOL 3 ML VIAL.NEB. NEB SCH ×4 (09:11→21:50)
[2016-09-20] MEDS ORDERED: predniSONE 5 MG TABLET (UD) PO ONE (10:00)
[2016-09-20] MEDS: DOCUSATE SODIUM 100 MG CAPSULE (FP) PO SCH ×2 (10:32→21:49)
[2016-09-20] MEDS: PRENATAL VITAMINS W/ FOLIC ACID TABLET (FP) PO SCH (10:32)
[2016-09-20] MEDS: busPIRone HCL 10 MG TABLET (FP) PO SCH ×2 (10:32→21:48)
[2016-09-20] MEDS: HYDROCHLOROTHIAZIDE 25 MG TABLET (FP) PO SCH (10:32)
[2016-09-20] MEDS: RANITIDINE HCL 150 MG TABLET (FP) PO SCH ×2 (10:32→21:48)
[2016-09-20] MEDS: SODIUM CHLORIDE NASAL SPRAY 44 ML BOTTLE NS SCH ×2 (10:32→21:50)
[2016-09-20] MEDS: hydrOXYzine PAMOATE 50 MG CAPSULE (FP) PO PRN ×2 (10:36→21:51)
--- NOTE | 2016-09-20 13:43 | PN ---
Psychiatric Progress Note Vital Signs: Vital Signs Period Temp Pulse Resp BP Sys/Sue Pulse Ox Last 24 Hr 97.7 F 87-101 16-18 151-155/80-82 Date of Session: 09/20/16 Chief Complaint:: Discharge visit HPI: Opioid,Cocaine and Anxiolytic dpenendence comorbid with Substance induced mood disorder. ROS: Significant for BA,HTN,GERD. Current Medications: Active Medications Generic Name Dose Route Start Last Admin Trade Name Freq PRN Reason Stop Dose Admin Acetaminophen 650 mg 08/25/16 19:24 09/14/16 22:18 Tylenol - PO 650 mg Q4H PRN Administration FEVER OR PAIN Al Hydroxide/Mg Hydroxide 30 ml 08/25/16 19:24 09/13/16 22:14 Mylanta Oral Suspension - PO 30 ml Q6H PRN Administration DYSPEPSIA Albuterol Sulfate 2 puff 08/30/16 14:41 09/12/16 12:42 Ventolin Hfa Inhaler - IH 2 inh Q4H PRN Administration SHORT OF BREATH/WHEEZING Albuterol/Ipratropium 1 amp 09/12/16 14:22 09/14/16 06:22 Duoneb - NEB 1 amp TID@0000,0400,0800 PRN Administration SHORTNESS OF BREATH Albuterol/Ipratropium 1 amp 09/12/16 18:00 09/20/16 13:16 Duoneb - NEB 1 amp QID CHANDRA Administration Buspirone HCl 10 mg 09/13/16 22:00 09/20/16 10:32 Buspar - PO 10 mg BID CHANDRA Administration Diltiazem HCl 180 mg 08/26/16 10:00 09/20/16 10:32 Cardizem Cd - PO 180 mg DAILY CHANDRA Administration Diphenhydramine HCl 50 mg 08/25/16 19:24 09/19/16 21:55 Benadryl - PO 50 mg HSMR1 PRN Administration FOR ITCHING Docusate Sodium 100 mg 08/28/16 13:00 09/20/16 10:32 Colace - PO 100 mg BID CHANDRA Administration Eucalyptus/Menthol/Phenol/Sorbitol 1 each 08/25/16 19:24 Cepastat Lozenge - MM Q4H PRN SORE THROAT Guaifenesin 10 ml 08/25/16 19:24 09/19/16 13:32 Robitussin Dm - PO 10 ml Q6H PRN Administration COUGH Hydrochlorothiazide 25 mg 09/01/16 14:30 09/20/16 10:32 Hctz - PO 25 mg DAILY CHANDRA Administration Hydroxyzine Pamoate 50 mg 08/25/16 19:24 09/20/16 10:36 Vistaril - PO 50 mg Q4H PRN Administration AGITATION Ibuprofen 600 mg 08/28/16 12:42 09/15/16 11:35 Motrin - PO 600 mg Q6H PRN Administration PAIN Loperamide HCl 4 mg 08/25/16 19:24 Imodium - PO Q6H PRN DIARRHEA Magnesium Citrate 300 ml 09/18/16 14:25 09/19/16 18:56 Citroma - PO 300 ml DAILY PRN Administration CONSTIPATION Magnesium Hydroxide 30 ml 08/25/16 19:24 09/19/16 13:13 Milk Of Magnesia - PO 30 ml DAILY PRN Administration CONSTIPATION Methadone HCl 40 mg/ Methadone 75 mg 09/20/16 06:00 09/20/16 06:22 HCl 30 mg/ Methadone HCl 5 mg PO 09/26/16 05:59 75 mg DAILY@0600 CHANDRA Administration Mirtazapine 15 mg 08/25/16 23:45 09/19/16 21:54 Remeron - PO 15 mg HS CHANDRA Administration Montelukast Sodium 10 mg 09/12/16 22:00 09/19/16 21:53 Singulair - PO 10 mg HS CHANDRA Administration Nicotine 14 mg 08/25/16 19:24 Nicoderm Patch - TD DAILY PRN WITHDRAWAL(CONT SUBST) Nicotine Polacrilex 2 mg 08/25/16 19:24 Nicorette Gum - BUC Q2H PRN NICOTINE REPLACEMENT RX Multivit/Folic Acid/Iron 1 tab 08/26/16 10:00 09/20/16 10:32 Vitamins (Sjr) - PO 1 tab DAILY CHANDRA Administration Pseudoephedrine/Triprolidine 1 combo 08/25/16 19:24 09/10/16 13:14 Actifed - PO 1 combo TID PRN Administration NASAL CONGESTION Ranitidine HCl 150 mg 08/25/16 22:00 09/20/16 10:32 Zantac - PO 150 mg BID CHANDRA Administration Sodium Chloride 2 spray 09/04/16 11:00 09/20/16 10:32 [place] Nasal [place] - NS 2 spray BID CHANDRA Administration Thiamine HCl 100 mg 08/25/16 22:00 09/19/16 21:54 Vitamin B1 - PO 100 mg HS CHANDRA Administration Current Side Effect: No Lab tests ordered: No Lab tests reviewed: Yes Provider note:: Patient will complete this program tomorrow 09/20/16.She has met her treatment goals and will continue to address her issues on outpatient basis .patient continues to find that Buspar 10 mg po bid and Remeron 15 mg po hs help to reduce her anxiety,sleeping problems and mood instability.Scripts for 30 days provided.Therapy provided focusing on relapse prevention issues including coping skills,support system utilization to maintain recovery.Patient is stable for discharge tomorrow . Total face to face time:: 30 Mental Status Exam - Mental Status Exam Alert and Oriented to: Time, Place, Person Cognitive Function: Grossly Intact Patient Appearance: Well Groomed Mood: Euthymic Affect: Normal Range Patient Behavior: Cooperative Speech Pattern: Clear Voice Loudness: Normal Thought Process: Goal Oriented Thought Disorder: Not Present Hallucinations: Denies Suicidal Ideation: Denies Homicidal Ideation: Denies Insight/Judgement: Fair Sleep: Fair Appetite: Good Muscle strength/Tone: Normal Gait/Station: Normal Psychiatric Treatment Plan - Problem List (1) Cocaine dependence, uncomplicated Current Visit: Yes (2) Nicotine dependence Current Visit: Yes (3) Opioid dependence on agonist therapy Current Visit: Yes (4) Sedative, hypnotic or anxiolytic dependence with withdrawal, uncomplicated Current Visit: Yes (5) Substance induced mood disorder Current Visit: Yes (6) Asthma Current Visit: Yes Qualifiers: (7) GERD (gastroesophageal reflux disease) Current Visit: Yes Qualifiers: (8) Hypertension Current Visit: Yes Qualifiers:
[2016-09-20] MEDS: MONTELUKAST NA 10 MG TABLET PO SCH (21:48)
[2016-09-20] MEDS: THIAMINE HCL 100 MG TABLET (FP) PO SCH (21:48)
[2016-09-20] MEDS: MIRTAZAPINE 15 MG TABLET (FP) PO SCH (21:48)
[2016-09-21] MEDS: guaiFENesin/D-METHORPHAN HB 10 ML UNIT-DOSE CUPS PO PRN (01:47)
[2016-09-21] MEDS ORDERED: METHADONE HCL 5 MG TABLET ONE (03:29)
[2016-09-21] MEDS ORDERED: METHADONE HCL 40 MG DISPERSABLE TABLET ONE (03:30)
[2016-09-21] MEDS ORDERED: METHADONE HCL 10 MG TABLET ONE (03:30)
[2016-09-21] MEDS: METHADONE 40 MG, METHADONE 30 MG, METHADONE 5 MG PO SCH (06:13)
[2016-09-21 07:01] VITALS: TEMP 98.2
[2016-09-21] MEDS ORDERED: PT OWN MED DRAWER 7, Y5N ONE (08:48)
[2016-09-21] MEDS: ALBUTEROL SO4 2.5/IPRATROPIUM 0.5 INH SOL 3 ML VIAL.NEB. NEB SCH (09:00)
[2016-09-21] MEDS: RANITIDINE HCL 150 MG TABLET (FP) PO SCH (09:16)
[2016-09-21] MEDS: busPIRone HCL 10 MG TABLET (FP) PO SCH (09:16)
[2016-09-21] MEDS: SODIUM CHLORIDE NASAL SPRAY 44 ML BOTTLE NS SCH (09:16)
[2016-09-21] MEDS: PRENATAL VITAMINS W/ FOLIC ACID TABLET (FP) PO SCH (09:16)
[2016-09-21] MEDS: DOCUSATE SODIUM 100 MG CAPSULE (FP) PO SCH (09:16)
[2016-09-21] MEDS: hydrOXYzine PAMOATE 50 MG CAPSULE (FP) PO PRN (09:18)
[2016-09-21 09:34] VITALS: BP 169/75; PULSE 86
[2016-09-21] MEDS ORDERED: TRIAMTERENE AND HCTZ - 37.5 MG/25 MG CAPSULE PO SCH (10:00)
== END 2016-09-21 10:11 | disposition home or self-care (01) | DRG 895 ==
LOC: YASAS 18:49 → Y3E 18:50
PROVIDERS: ADMIT Psychiatry & Neurology Psychiatry; ATTEND Psychiatry & Neurology Psychiatry
PROC: HZ42ZZZ Group Counseling for Substance Abuse Treatment, Cognitive-Behavioral (ICD-10-PCS; principal; 2016-08-25)
DX: F13.20 Sedative, hypnotic or anxiolytic dependence, uncomplicated (principal); J18.9 Pneumonia, unspecified organism; F11.20 Opioid dependence, uncomplicated; F14.20 Cocaine dependence, uncomplicated; F17.210 Nicotine dependence, cigarettes, uncomplicated; F19.24 Other psychoactive substance dependence with psychoactive substance-induced mood disorder; J45.909 Unspecified asthma, uncomplicated; I10 Essential (primary) hypertension; K21.9 Gastro-esophageal reflux disease without esophagitis; J20.9 Acute bronchitis, unspecified
CPT/HCPCS: 71020-TC; 93005; 93010; 94640